=== PATIENT | male | born 1980 | race Caucasian/White ===

== ENCOUNTER 2016-09-16 06:58 | Emergency (ER) | payer MEDICAID, OTHER ==
[~2016-09-16] VITALS: Ht 188 cm; Wt 79.4 kg
[2016-09-16 07:30] VITALS: BP 122/69
[2016-09-16] MEDS ORDERED: cefTRIAXone SOD 1,000 MG VL IM ONE (08:00)
[2016-09-16] MEDS ORDERED: TETANUS-DIPTH-ACEL PERTUSSIS 0.5ML SYRG IM ONE (08:00)
[2016-09-16] MEDS ORDERED: HYDROcodone-ACET 10/325MG TAB PO ONE (08:15)
== END 2016-09-16 08:42 | disposition home or self-care (01) ==
LOC: ER 06:58
DX: S00.87XA Other superficial bite of other part of head, initial encounter (principal); E11.9 Type 2 diabetes mellitus without complications; Z79.4 Long term (current) use of insulin; F17.210 Nicotine dependence, cigarettes, uncomplicated; F12.10 Cannabis abuse, uncomplicated; F15.10 Other stimulant abuse, uncomplicated; Z23 Encounter for immunization; B99.8 Other infectious disease
CPT/HCPCS: 90471; 90715; 96372; 99284; J0696